=== PATIENT | male | born 1975 | race Caucasian/White ===

== ENCOUNTER 2023-07-30 14:09 | Inpatient (IN) | payer SELFPAY ==
[2023-07-30] MEDS ORDERED: Morphine 4 MG/ML VIAL ONE ×2 (14:17→14:47)
[2023-07-30] MEDS ORDERED: Ondansetron PF 4 MG/2 ML Vial ONE ×2 (14:17→20:43)
[2023-07-30] MEDS ORDERED: CEFAZOLIN 2 GM VIAL ONE (14:23)
[2023-07-30] MEDS ORDERED: Sodium Chloride 0.9% 100 ML ONE (14:23)
[2023-07-30] MEDS ORDERED: Boostrix 0.5 ML (Tdap) VIAL (>/=7 yrs of age) ONE ×2 (14:23→16:05)
[2023-07-30 14:28] LABS: #Basophils 0.1 thou/uL (0.0-0.2); #Eosinphils 0.2 thou/uL (0.0-0.7); #Monocytes 0.9 thou/uL (0.11-0.59); #Neutrophils 9.6 thou/uL (1.40-6.50); %Basophils 0.6 % (0.0-1.0); %Eosinophils 1.4 % (0.0-10.0); %Lymphocytes 14.4 % (21.0-51.0); %Monocytes 6.8 % (0.0-10.0); %Neutrophils 76.5 % (42.0-75.0); Hematocrit 45.2 % (42.0-52.0); Hemoglobin 15.2 g/dL (14.0-18.0); Mean Corpuscular HGB CONC 33.6 g/dL (32.0-36.0); Mean Corpuscular Hemoglobin 32.9 pg (27.0-31.0); Mean Corpuscular Volume 97.8 fl (78.0-98.0); Mean Platelet Volume 9.5 fL (7.4-10.4); Platelet Count 221 10x3/uL (130-400); RBC Distribution Width 12.6 % (11.5-14.5); Red Blood Cell (RBC) Count 4.62 mill/uL (4.70-6.10); White Blood Cell (WBC) Count 12.5 10x3/uL (4.8-10.8)
[2023-07-30 14:39] LABS: INR-International Normal Ratio 0.9; Prothrombin Time 12.7 sec (12.0-14.7)
[2023-07-30] MEDS ORDERED: SODIUM CHLORIDE IVPB SCH (14:45)
[2023-07-30] MEDS ORDERED: ADMIXTURE FEE IVPB SCH (14:45)
[2023-07-30] MEDS ORDERED: GENTAMICIN SULFATE IVPB SCH (14:45)
[2023-07-30 14:50] LABS: Anion Gap 15 mmol/L (10-20); BUN (Urea Nitrogen) 9 mg/dL (8.9-20.6); Calc. Creatinine Clearance 0 mL/min (70-130); Carbon Dioxide 21 mmol/L (22-29); Chloride 107 mmol/L (98-107); Potassium 4.4 mmol/L (3.5-5.1); Sodium 139 mmol/L (136-145)
[2023-07-30 14:51] LABS: ALT (SGPT) 23 U/L (8-55); AST (SGOT) 23 U/L (5-34); Albumin 4.2 g/dL (3.5-5.0); Alcohol Less than 10.0 mg/dL (Less than 10); Alkaline Phosphatase 72 U/L (40-110); Bilirubin, Total 0.4 mg/dL (0.2-1.2); Calcium 9.1 mg/dL (7.8-10.44); Estimated GFR 83; Globulin 2.6 g/dL (2.4-3.5); Glucose 124 mg/dL (70-105); Protein, Total 6.8 g/dL (6.0-8.3)
[2023-07-30] MEDS ORDERED: Ondansetron PF 4 MG/2 ML Vial IVP PRN (15:50)
[2023-07-30] MEDS ORDERED: Ipratropium/Albuterol 3 ML NEB NEB PRN (15:50)
[2023-07-30] MEDS ORDERED: Cyclobenzaprine 10 MG TAB PO PRN (15:53)
[2023-07-30] MEDS ORDERED: traMADol HCl 50 MG TAB PO PRN (15:53)
[2023-07-30] MEDS: Sodium Chloride 0.9% 1,000 ML IV SCH (16:00)
[2023-07-30] MEDS ORDERED: Morphine 2 MG/ML VIAL ONE (16:30)
[2023-07-30] MEDS ORDERED: traMADol HCl 50 MG TAB ONE (16:31)
[2023-07-30 16:41] LABS: Prothrombin Time 13.2 sec (12.0-14.7)
[2023-07-30 16:42] LABS: PTT 21.4 sec (22.9-36.1)
[2023-07-30] MEDS: Acetaminophen 500 MG TAB PO SCH (19:01)
[2023-07-30] MEDS: traMADol HCl 50 MG TAB PO SCH (19:02)
[2023-07-30] MEDS: Morphine 2 MG/ML VIAL SLOW IVP PRN (19:59)
[2023-07-30 20:03] VITALS: BMI 25.8
[2023-07-30] MEDS ORDERED: Midazolam HCl 2 mg/2 ml Vial ONE (20:28)
[2023-07-30] MEDS ORDERED: Fentanyl 250 MCG/5 ML VIAL ONE (20:28)
[2023-07-30] MEDS ORDERED: Dexamethasone 20 MG/5 ML VIAL ONE (20:43)
[2023-07-30] MEDS ORDERED: PROPOFOL 200 MG/20 ML VIAL ONE (20:43)
[2023-07-30] MEDS ORDERED: Rocuronium Bromide 10 MG/ML (10ML VIAL) ONE (20:43)
[2023-07-30] MEDS ORDERED: Succinylcholine 200 MG/10 ml SYRINGE FS ONE (20:43)
[2023-07-30] MEDS ORDERED: Glycopyrrolate 0.2 MG/ML 5 ML SYRINGE ONE (20:43)
[2023-07-30] MEDS ORDERED: NEOSTIGMINE 3 MG/3 ML SYR 3 MG/3 ML SYRINGE ONE (20:43)
[2023-07-30] MEDS ORDERED: Ketorolac Tromethamine 30 MG/ML VIAL ONE (20:43)
[2023-07-30 20:46] LABS: Amphetamine Not Detected (NotDetected); Barbiturates Screen Not Detected (NotDetected); Benzodiazepine Screen Not Detected (NotDetected); Cocaine Metabolite Screen Not Detected (NotDetected); Methadone Not Detected (NotDetected); Methamphetamine Not Detected (NotDetected); Opiate Screen Detected (NotDetected); Oxycodone Screen Not Detected (NotDetected); Phencyclidine (PCP) Not Detected (NotDetected); THC/Cannabinoid Screen Detected (NotDetected); Tricyclic Screen Not Detected (NotDetected)
[2023-07-30] MEDS: Gabapentin 300 MG CAP PO SCH (21:00)
[2023-07-30] MEDS: Famotidine 20 MG TAB PO SCH (21:00)
[2023-07-30] MEDS ORDERED: CEFAZOLIN 2 GM in Sodium Chloride 0.9% 100 ML IVPB SCH (22:00)
[2023-07-31] MEDS: Oxazepam 10 MG CAP PO SCH ×4 (01:45→21:49)
[2023-07-31] MEDS: traMADol HCl 50 MG TAB PO SCH ×4 (01:45→17:57)
[2023-07-31] MEDS: Sodium Chloride 0.9% 1,000 ML IV SCH ×3 (05:07→14:27)
[2023-07-31] MEDS: CEFAZOLIN 2 GM in Sodium Chloride 0.9% 100 ML IVPB SCH ×2 (05:07→14:07)
[2023-07-31] MEDS: Acetaminophen 500 MG TAB PO SCH ×4 (05:08→17:56)
[2023-07-31 05:28] LABS: #Monocytes 0.5 thou/uL (0.11-0.59); #Neutrophils 9.6 thou/uL (1.40-6.50); %Basophils 0.2 % (0.0-1.0); %Lymphocytes 5.3 % (21.0-51.0); %Monocytes 4.3 % (0.0-10.0); %Neutrophils 89.8 % (42.0-75.0); Hemoglobin 12.7 g/dL (14.0-18.0); Mean Corpuscular HGB CONC 33.4 g/dL (32.0-36.0); Mean Corpuscular Hemoglobin 33.2 pg (27.0-31.0); Mean Corpuscular Volume 99.5 fl (78.0-98.0); Mean Platelet Volume 10.1 fL (7.4-10.4); Platelet Count 180 10x3/uL (130-400); Red Blood Cell (RBC) Count 3.82 mill/uL (4.70-6.10); White Blood Cell (WBC) Count 10.7 10x3/uL (4.8-10.8)
[2023-07-31 05:43] LABS: INR-International Normal Ratio 0.9; PTT 24.4 sec (22.9-36.1); Prothrombin Time 12.8 sec (12.0-14.7)
[2023-07-31 05:53] LABS: Anion Gap 15 mmol/L (10-20); BUN (Urea Nitrogen) 10 mg/dL (8.9-20.6); Calc. Creatinine Clearance 95 mL/min (70-130); Carbon Dioxide 18 mmol/L (22-29); Chloride 108 mmol/L (98-107); Estimated GFR 83; Glucose 155 mg/dL (70-105); Potassium 4.3 mmol/L (3.5-5.1); Sodium 137 mmol/L (136-145)
[2023-07-31] MEDS: Thiamine 100 MG TAB PO SCH (08:34)
[2023-07-31] MEDS: Famotidine 20 MG TAB PO SCH ×2 (08:34→21:48)
[2023-07-31] MEDS: Folic Acid 1 MG TAB PO SCH (08:34)
[2023-07-31] MEDS: Gabapentin 300 MG CAP PO SCH ×3 (08:35→21:49)
[2023-07-31] MEDS: Morphine 2 MG/ML VIAL SLOW IVP PRN (09:40)
[2023-07-31] MEDS ORDERED: Ketorolac Tromethamine 30 MG/ML VIAL IVP SCH (10:30)
[2023-07-31] MEDS: Ketorolac Tromethamine 30 MG/ML VIAL IVP SCH ×2 (12:27→17:58)
[2023-07-31] MEDS: Cyclobenzaprine 10 MG TAB PO PRN ×2 (14:25→21:49)
[2023-07-31] MEDS: Senokot S 8.6-50 MG TAB PO SCH (21:53)
[2023-08-01] MEDS: traMADol HCl 50 MG TAB PO SCH ×5 (00:24→23:50)
[2023-08-01] MEDS: Ketorolac Tromethamine 30 MG/ML VIAL IVP SCH ×2 (00:25→06:06)
[2023-08-01] MEDS: Morphine 2 MG/ML VIAL SLOW IVP PRN (00:31)
[2023-08-01] MEDS: Acetaminophen 500 MG TAB PO SCH ×3 (00:37→12:21)
[2023-08-01 05:22] LABS: #Eosinphils 0.1 thou/uL (0.0-0.7); #Monocytes 0.6 thou/uL (0.11-0.59); #Neutrophils 4.8 thou/uL (1.40-6.50); %Basophils 0.3 % (0.0-1.0); %Eosinophils 1.1 % (0.0-10.0); %Lymphocytes 21.7 % (21.0-51.0); %Monocytes 8.9 % (0.0-10.0); %Neutrophils 67.7 % (42.0-75.0); Hematocrit 31.9 % (42.0-52.0); Hemoglobin 10.7 g/dL (14.0-18.0); Mean Corpuscular HGB CONC 33.5 g/dL (32.0-36.0); Mean Corpuscular Hemoglobin 33.4 pg (27.0-31.0); Mean Corpuscular Volume 99.7 fl (78.0-98.0); Mean Platelet Volume 9.9 fL (7.4-10.4); Platelet Count 142 10x3/uL (130-400); White Blood Cell (WBC) Count 7.1 10x3/uL (4.8-10.8)
[2023-08-01 05:44] LABS: Anion Gap 9 mmol/L (10-20); BUN (Urea Nitrogen) 10 mg/dL (8.9-20.6); Calc. Creatinine Clearance 123 mL/min (70-130); Carbon Dioxide 24 mmol/L (22-29); Chloride 108 mmol/L (98-107); Estimated GFR 107; Glucose 103 mg/dL (70-105); Potassium 3.4 mmol/L (3.5-5.1); Sodium 138 mmol/L (136-145)
[2023-08-01] MEDS: Oxazepam 10 MG CAP PO SCH ×3 (06:06→23:50)
[2023-08-01] MEDS ORDERED: Potassium Chloride 20 MEQ TAB PO SCH ×2 (08:30→09:30)
[2023-08-01] MEDS: Famotidine 20 MG TAB PO SCH ×2 (09:00→20:21)
[2023-08-01] MEDS: Polyethylene Glycol 3350 17 GM Packet PO SCH (09:00)
[2023-08-01] MEDS: Gabapentin 300 MG CAP PO SCH ×3 (09:00→20:21)
[2023-08-01] MEDS: Folic Acid 1 MG TAB PO SCH (09:00)
[2023-08-01] MEDS: Thiamine 100 MG TAB PO SCH (09:00)
[2023-08-01] MEDS: Senokot S 8.6-50 MG TAB PO SCH ×2 (09:01→20:21)
[2023-08-01] MEDS: Cyclobenzaprine 10 MG TAB PO PRN ×2 (09:10→20:21)
[2023-08-01] MEDS: Ibuprofen 200 MG TAB PO PRN ×2 (13:11→20:21)
[2023-08-01] MEDS: Acetaminophen/Codeine 30-300mg Tablet PO SCH ×2 (16:24→23:52)
[2023-08-02] MEDS: Oxazepam 10 MG CAP PO SCH ×2 (05:34→14:12)
[2023-08-02] MEDS: Acetaminophen 325 MG TAB PO SCH ×3 (05:35→17:25)
[2023-08-02] MEDS: Acetaminophen/Codeine 30-300mg Tablet PO SCH (05:35)
[2023-08-02] MEDS: traMADol HCl 50 MG TAB PO SCH ×3 (05:36→17:34)
[2023-08-02] MEDS: Famotidine 20 MG TAB PO SCH (09:18)
[2023-08-02] MEDS: Senokot S 8.6-50 MG TAB PO SCH (09:19)
[2023-08-02] MEDS ORDERED: Acetaminophen/Codeine 30-300mg Tablet PO PRN ×2 (09:19→09:20)
[2023-08-02] MEDS: Gabapentin 300 MG CAP PO SCH ×2 (09:19→14:12)
[2023-08-02] MEDS: Folic Acid 1 MG TAB PO SCH (09:19)
[2023-08-02] MEDS: Thiamine 100 MG TAB PO SCH (09:19)
[2023-08-02] MEDS: Polyethylene Glycol 3350 17 GM Packet PO SCH (09:19)
[2023-08-02] MEDS ORDERED: Morphine 2 MG/ML VIAL SLOW IVP PRN (09:21)
[2023-08-02] MEDS: tiZANidine HCl 4 MG TAB PO SCH ×2 (12:00→17:33)
[2023-08-02] MEDS: Ketorolac Tromethamine 30 MG/ML VIAL IVP SCH ×2 (12:01→17:26)
[2023-08-02 16:42] VITALS: TEMP 97.8
[2023-08-02 17:35] VITALS: BP 112/68
[2023-08-02] MEDS ORDERED: FLU VACC QS2023-24(6MOS UP)/PF 60 MCG/0.5 ML SYRINGE IM ONE (23:45)
== END 2023-08-02 18:54 | disposition home or self-care (01) | DRG 494 ==
LOC: ERS 14:09 → SURG B 16:36
PROVIDERS: ADMIT Student in an Organized Health Care Education/Training Program; ATTEND Student in an Organized Health Care Education/Training Program
PROC: 0QSG35Z Reposition Right Tibia with External Fixation Device, Percutaneous Approach (ICD-10-PCS; principal; 2023-07-30)
PROC: 0QDG0ZZ Extraction of Right Tibia, Open Approach (ICD-10-PCS; 2023-07-30)
PROC: 0QSMXZZ Reposition Left Tarsal, External Approach (ICD-10-PCS; 2023-07-30)
PROC: 3E0234Z Introduction of Serum, Toxoid and Vaccine into Muscle, Percutaneous Approach (ICD-10-PCS; 2023-07-30)
DX: S82.871B Displaced pilon fracture of right tibia, initial encounter for open fracture type I or II (principal); S92.002A Unspecified fracture of left calcaneus, initial encounter for closed fracture; S82.401A Unspecified fracture of shaft of right fibula, initial encounter for closed fracture; W13.2XXA Fall from, out of or through roof, initial encounter; F17.210 Nicotine dependence, cigarettes, uncomplicated; Z79.01 Long term (current) use of anticoagulants; Z86.718 Personal history of other venous thrombosis and embolism; Z98.890 Other specified postprocedural states; Z23 Encounter for immunization
CPT/HCPCS: 36415; 71045; 72131; 72170; 80048; 80053; 80306; 80307; 85025; 85610; 85730; 86850; 86900; 86901; 90471; 90715; 93005; 96365; 96367; 96375; 96376; C1713; C1776; G0390; J1100; J1580; J1650; J1885; J2250; J2270; J2272; J2405; J2704; J3010; J3490; J7050

== ENCOUNTER 2023-08-05 10:30 | Inpatient (IN) | payer SELFPAY ==
[2023-08-05] MEDS ORDERED: Sodium Chloride 0.9% 100 ML ONE (11:04)
[2023-08-05] MEDS ORDERED: Cefepime 2 GM VIAL ONE (11:04)
[2023-08-05] MEDS ORDERED: Vancomycin 1 GM/200 ML (FROZEN) BAG ONE (11:04)
[2023-08-05 11:29] LABS: Hemoglobin 12.8 g/dL (14.0-18.0); Red Blood Cell (RBC) Count 3.95 mill/uL (4.70-6.10); White Blood Cell (WBC) Count 5.6 10x3/uL (4.8-10.8)
[2023-08-05 11:30] LABS: #Eosinphils 0.2 thou/uL (0.0-0.7); #Monocytes 0.6 thou/uL (0.11-0.59); #Neutrophils 3.9 thou/uL (1.40-6.50); %Basophils 0.4 % (0.0-1.0); %Eosinophils 3.2 % (0.0-10.0); %Lymphocytes 14.8 % (21.0-51.0); %Monocytes 11.4 % (0.0-10.0); %Neutrophils 69.8 % (42.0-75.0); Hematocrit 38.7 % (42.0-52.0); Mean Corpuscular HGB CONC 33.1 g/dL (32.0-36.0); Mean Corpuscular Hemoglobin 32.4 pg (27.0-31.0); Mean Platelet Volume 9.9 fL (7.4-10.4); Platelet Count 232 10x3/uL (130-400); RBC Distribution Width 13.2 % (11.5-14.5)
[2023-08-05 11:58] LABS: ALT (SGPT) 22 U/L (8-55); AST (SGOT) 26 U/L (5-34); Albumin 3.4 g/dL (3.5-5.0); Alkaline Phosphatase 97 U/L (40-110); Anion Gap 15 mmol/L (10-20); BUN (Urea Nitrogen) 10 mg/dL (8.9-20.6); Bilirubin, Total 0.6 mg/dL (0.2-1.2); Calc. Creatinine Clearance 0 mL/min (70-130); Calcium 9.5 mg/dL (7.8-10.44); Carbon Dioxide 22 mmol/L (22-29); Chloride 106 mmol/L (98-107); Estimated GFR 108; Globulin 3.8 g/dL (2.4-3.5); Glucose 97 mg/dL (70-105); Potassium 4.4 mmol/L (3.5-5.1); Protein, Total 7.2 g/dL (6.0-8.3); Sodium 139 mmol/L (136-145)
[2023-08-05] MEDS ORDERED: Vancomycin (BATCH) 2 GM in Premix 1 BAG IVPB SCH (12:15)
[2023-08-05] MEDS ORDERED: Ipratropium/Albuterol 3 ML NEB NEB PRN (12:28)
[2023-08-05] MEDS ORDERED: Ondansetron PF 4 MG/2 ML Vial IVP PRN (12:28)
[2023-08-05] MEDS ORDERED: hydrALAZINE 20 MG/ML VIAL SLOW IVP PRN (12:28)
[2023-08-05] MEDS ORDERED: Sodium Chloride 0.9% 1,000 ML IV SCH (12:30)
[2023-08-05] MEDS ORDERED: traMADol HCl 50 MG TAB PO PRN (12:30)
[2023-08-05 14:21] VITALS: BMI 26.5
[2023-08-05] MEDS: Oxazepam 10 MG CAP PO SCH ×2 (14:25→22:58)
[2023-08-05] MEDS: Gabapentin 300 MG CAP PO SCH ×2 (14:33→20:08)
[2023-08-05] MEDS: Acetaminophen/Codeine 30-300mg Tablet PO PRN ×2 (14:33→20:07)
[2023-08-05] MEDS ORDERED: Piperacillin/Tazobactam 3.375 GM in Sodium Chloride 0.9% 100 ML IVPB SCH ×2 (15:30→18:00)
[2023-08-05 16:28] LABS: Bacteria/HPF None Seen HPF (None Seen); Bilirubin Negative (Negative); Blood, Urine Negative (Negative); CAUTI Indications for Culture Fever or rigors; Clarity Clear (Clear); Glucose, Urine (Dipstick) Normal (Negative); Ketone, Urine Negative (Negative); Leukocyte Negative Leu/uL (Negative); Nitrite Negative (Negative); Protein, Urine (Dipstick) 10 mg/dL (Neg-Trace); RBC/HPF 0-3 HPF (0-3); Specific Gravity, Urine 1.018 (1.002-1.036); Squamous Epithelial None Seen HPF (0-3); Urobilinogen Normal mg/dL (Less than 2); WBC/HPF 0-3 HPF (0-3)
[2023-08-05 16:33] LABS: Urine Culture Reflex No No
[2023-08-05] MEDS: Acetaminophen 325 MG TAB PO SCH ×2 (17:08→23:04)
[2023-08-05] MEDS: traMADol HCl 50 MG TAB PO SCH ×2 (17:08→23:04)
[2023-08-05] MEDS: Famotidine 20 MG TAB PO SCH (20:06)
[2023-08-05] MEDS: Senokot S 8.6-50 MG TAB PO SCH (20:08)
[2023-08-05] MEDS: Piperacillin/Tazobactam 3.375 GM in Sodium Chloride 0.9% 100 ML IVPB SCH (22:59)
[2023-08-06] MEDS: Cyclobenzaprine 10 MG TAB PO PRN ×2 (00:06→21:31)
[2023-08-06] MEDS: Acetaminophen 325 MG TAB PO SCH ×3 (05:46→18:01)
[2023-08-06] MEDS: traMADol HCl 50 MG TAB PO SCH ×4 (05:46→23:49)
[2023-08-06] MEDS: Piperacillin/Tazobactam 3.375 GM in Sodium Chloride 0.9% 100 ML IVPB SCH ×3 (05:48→21:31)
[2023-08-06] MEDS: Oxazepam 10 MG CAP PO SCH ×3 (05:48→21:36)
[2023-08-06 06:11] LABS: #Eosinphils 0.2 thou/uL (0.0-0.7); #Monocytes 0.8 thou/uL (0.11-0.59); #Neutrophils 3.1 thou/uL (1.40-6.50); %Basophils 0.4 % (0.0-1.0); %Eosinophils 3.7 % (0.0-10.0); %Lymphocytes 20.6 % (21.0-51.0); %Monocytes 14.6 % (0.0-10.0); %Neutrophils 60.3 % (42.0-75.0); Hemoglobin 11.5 g/dL (14.0-18.0); Mean Corpuscular HGB CONC 32.9 g/dL (32.0-36.0); Mean Corpuscular Hemoglobin 32.3 pg (27.0-31.0); Mean Corpuscular Volume 98.3 fl (78.0-98.0); Mean Platelet Volume 9.8 fL (7.4-10.4); Platelet Count 229 10x3/uL (130-400); RBC Distribution Width 13.3 % (11.5-14.5); Red Blood Cell (RBC) Count 3.56 mill/uL (4.70-6.10); White Blood Cell (WBC) Count 5.1 10x3/uL (4.8-10.8)
[2023-08-06 06:31] LABS: Anion Gap 14 mmol/L (10-20); BUN (Urea Nitrogen) 10 mg/dL (8.9-20.6); Calc. Creatinine Clearance 132 mL/min (70-130); Calcium 8.6 mg/dL (7.8-10.44); Carbon Dioxide 20 mmol/L (22-29); Chloride 108 mmol/L (98-107); Estimated GFR 109; Glucose 91 mg/dL (70-105); Potassium 4.2 mmol/L (3.5-5.1); Sodium 138 mmol/L (136-145)
[2023-08-06 06:51] LABS: PTT 37.1 sec (22.9-36.1)
[2023-08-06] MEDS: Senokot S 8.6-50 MG TAB PO SCH ×2 (09:09→20:01)
[2023-08-06] MEDS: Folic Acid 1 MG TAB PO SCH (09:09)
[2023-08-06] MEDS: Saccharomyces boulardii 250 MG CAP PO SCH (09:09)
[2023-08-06] MEDS: Gabapentin 300 MG CAP PO SCH ×3 (09:10→19:59)
[2023-08-06] MEDS: Polyethylene Glycol 3350 17 GM Packet PO SCH (09:10)
[2023-08-06] MEDS: Famotidine 20 MG TAB PO SCH ×2 (09:10→19:59)
[2023-08-06] MEDS: Thiamine 100 MG TAB PO SCH (09:12)
[2023-08-06] MEDS: Acetaminophen/Codeine 30-300mg Tablet PO PRN ×2 (10:31→20:01)
[2023-08-07] MEDS: Acetaminophen 325 MG TAB PO SCH ×5 (00:02→23:07)
[2023-08-07] MEDS: traMADol HCl 50 MG TAB PO SCH ×4 (05:18→23:08)
[2023-08-07] MEDS: Piperacillin/Tazobactam 3.375 GM in Sodium Chloride 0.9% 100 ML IVPB SCH ×3 (05:19→23:06)
[2023-08-07] MEDS: Oxazepam 10 MG CAP PO SCH ×3 (05:26→21:16)
[2023-08-07] MEDS ORDERED: Vancomycin (BATCH) 2 GM in Premix 1 BAG IVPB SCH (09:00)
[2023-08-07] MEDS ORDERED: VANCOMYCIN IVPB PRN (09:01)
[2023-08-07] MEDS: Saccharomyces boulardii 250 MG CAP PO SCH (09:33)
[2023-08-07] MEDS: Thiamine 100 MG TAB PO SCH (09:33)
[2023-08-07] MEDS: Famotidine 20 MG TAB PO SCH ×2 (09:33→21:13)
[2023-08-07] MEDS: Folic Acid 1 MG TAB PO SCH (09:33)
[2023-08-07] MEDS: Senokot S 8.6-50 MG TAB PO SCH ×2 (09:34→21:14)
[2023-08-07] MEDS: Polyethylene Glycol 3350 17 GM Packet PO SCH (09:35)
[2023-08-07] MEDS: Gabapentin 300 MG CAP PO SCH ×3 (09:36→21:14)
[2023-08-07] MEDS: Vancomycin (BATCH) 1.25 GM in Premix 1 BAG IVPB SCH ×2 (11:08→21:24)
[2023-08-07] MEDS: Acetaminophen/Codeine 30-300mg Tablet PO PRN (21:19)
[2023-08-07] MEDS: Cyclobenzaprine 10 MG TAB PO PRN (23:09)
[2023-08-08] MEDS: Acetaminophen 325 MG TAB PO SCH ×4 (05:42→23:55)
[2023-08-08] MEDS: traMADol HCl 50 MG TAB PO SCH ×4 (05:44→23:54)
[2023-08-08] MEDS: Oxazepam 10 MG CAP PO SCH ×3 (05:44→21:52)
[2023-08-08 06:48] LABS: Hematocrit 33.8 % (42.0-52.0); Mean Corpuscular HGB CONC 32.5 g/dL (32.0-36.0); Mean Corpuscular Hemoglobin 32.1 pg (27.0-31.0); Mean Corpuscular Volume 98.5 fl (78.0-98.0); Mean Platelet Volume 9.4 fL (7.4-10.4); Platelet Count 288 10x3/uL (130-400); RBC Distribution Width 13.3 % (11.5-14.5); Red Blood Cell (RBC) Count 3.43 mill/uL (4.70-6.10); White Blood Cell (WBC) Count 6.4 10x3/uL (4.8-10.8)
[2023-08-08 06:51] LABS: Delete Auto Diff?? YES; Manual Diff?? YES
[2023-08-08] MEDS: Piperacillin/Tazobactam 3.375 GM in Sodium Chloride 0.9% 100 ML IVPB SCH ×3 (07:06→21:51)
[2023-08-08] MEDS: Famotidine 20 MG TAB PO SCH ×2 (08:43→21:52)
[2023-08-08] MEDS: Folic Acid 1 MG TAB PO SCH (08:43)
[2023-08-08] MEDS: Saccharomyces boulardii 250 MG CAP PO SCH (08:43)
[2023-08-08] MEDS: Thiamine 100 MG TAB PO SCH (08:43)
[2023-08-08] MEDS: Gabapentin 300 MG CAP PO SCH ×3 (08:44→21:52)
[2023-08-08] MEDS: Polyethylene Glycol 3350 17 GM Packet PO SCH (08:45)
[2023-08-08] MEDS: Senokot S 8.6-50 MG TAB PO SCH ×2 (08:45→21:51)
[2023-08-08] MEDS: Acetaminophen/Codeine 30-300mg Tablet PO PRN ×2 (08:54→16:39)
[2023-08-08 09:25] LABS: Band 3 % (5-11); Eosinophils 4 % (0-10); Lymphocytes 20 % (21-51); Monocytes 9 % (0-10); Neutrophil 64 % (42-75)
[2023-08-08 09:26] LABS: Platelet Adequacy Comment Appears Adequate; RBC Morph Comment Within Normal Limits
[2023-08-08] MEDS: Vancomycin (BATCH) 1.25 GM in Premix 1 BAG IVPB SCH ×2 (10:10→23:29)
[2023-08-08] MEDS ORDERED: Sodium Chloride 0.9% 100 ML ONE (13:55)
[2023-08-08] MEDS ORDERED: Piperacillin/Tazobactam 3.375 GM VIAL ONE (13:55)
[2023-08-08] MEDS ORDERED: fentaNYL 50 mcg/mL 1 mL Vial ONE ×2 (14:12→15:01)
[2023-08-08] MEDS ORDERED: Ondansetron PF 4 MG/2 ML Vial ONE (14:14)
[2023-08-08] MEDS ORDERED: Lidocaine 1% PF 5 ML VIAL ONE (14:14)
[2023-08-08] MEDS ORDERED: PROPOFOL 200 MG/20 ML VIAL ONE (14:14)
[2023-08-08] MEDS ORDERED: ePHEDrine Sulfate 50 MG/10 ML VIAL ONE (14:14)
[2023-08-08] MEDS ORDERED: FLU VACC QS2023-24(6MOS UP)/PF 60 MCG/0.5 ML SYRINGE IM ONE (14:30)
[2023-08-08] MEDS ORDERED: Sevoflurane 250 ML INH ANEST BOTTLE ONE (14:41)
[2023-08-08] MEDS ORDERED: Meperidine HCl/PF 25 MG/ML VIAL SLOW IVP PRN (15:20)
[2023-08-08] MEDS ORDERED: HYDROmorphone 2 MG/ML VIAL SLOW IVP PRN (15:20)
[2023-08-08] MEDS ORDERED: Morphine Sulfate 2 MG/ML SYRINGE SLOW IVP PRN (15:20)
[2023-08-08] MEDS ORDERED: Ondansetron HCl/PF 4 MG/2 ML Vial IVP PRN (15:20)
[2023-08-08] MEDS ORDERED: Promethazine HCl 25 MG/ML VIAL IM PRN (15:20)
[2023-08-08] MEDS: Morphine 2 MG/ML VIAL SLOW IVP PRN ×3 (16:36→21:51)
[2023-08-08] MEDS: Cyclobenzaprine 10 MG TAB PO PRN (21:51)
[2023-08-08 22:25] LABS: Vancomycin, Trough 23.3 ug/mL
[2023-08-09] MEDS: Morphine 2 MG/ML VIAL SLOW IVP PRN ×7 (01:56→20:29)
[2023-08-09] MEDS: Vancomycin 1 GM in Premix 1 BAG IVPB SCH ×2 (05:52→18:25)
[2023-08-09] MEDS: Acetaminophen 325 MG TAB PO SCH ×4 (05:53→23:17)
[2023-08-09] MEDS: Piperacillin/Tazobactam 3.375 GM in Sodium Chloride 0.9% 100 ML IVPB SCH ×3 (05:53→20:32)
[2023-08-09] MEDS: Oxazepam 10 MG CAP PO SCH ×3 (05:54→20:32)
[2023-08-09] MEDS: traMADol HCl 50 MG TAB PO SCH ×4 (05:54→23:17)
[2023-08-09 06:10] LABS: #Eosinphils 0.2 thou/uL (0.0-0.7); #Neutrophils 6.7 thou/uL (1.40-6.50); %Basophils 0.3 % (0.0-1.0); %Eosinophils 2.2 % (0.0-10.0); %Lymphocytes 14.3 % (21.0-51.0); %Monocytes 10.6 % (0.0-10.0); %Neutrophils 72.2 % (42.0-75.0); Hematocrit 31.9 % (42.0-52.0); Hemoglobin 10.5 g/dL (14.0-18.0); Mean Corpuscular HGB CONC 32.9 g/dL (32.0-36.0); Mean Corpuscular Hemoglobin 32.3 pg (27.0-31.0); Mean Corpuscular Volume 98.2 fl (78.0-98.0); Mean Platelet Volume 9.3 fL (7.4-10.4); Platelet Count 323 10x3/uL (130-400); RBC Distribution Width 13.2 % (11.5-14.5); Red Blood Cell (RBC) Count 3.25 mill/uL (4.70-6.10); White Blood Cell (WBC) Count 9.3 10x3/uL (4.8-10.8)
[2023-08-09] MEDS: Senokot S 8.6-50 MG TAB PO SCH ×2 (08:44→20:32)
[2023-08-09] MEDS: Gabapentin 300 MG CAP PO SCH ×3 (08:44→20:32)
[2023-08-09] MEDS: Thiamine 100 MG TAB PO SCH (08:45)
[2023-08-09] MEDS: Saccharomyces boulardii 250 MG CAP PO SCH (08:45)
[2023-08-09] MEDS: Famotidine 20 MG TAB PO SCH ×2 (08:45→20:31)
[2023-08-09] MEDS: Polyethylene Glycol 3350 17 GM Packet PO SCH (08:45)
[2023-08-09] MEDS: Folic Acid 1 MG TAB PO SCH (08:45)
[2023-08-10] MEDS: Acetaminophen 325 MG TAB PO SCH ×4 (05:42→22:30)
[2023-08-10] MEDS: Vancomycin 1 GM in Premix 1 BAG IVPB SCH ×2 (05:43→16:18)
[2023-08-10] MEDS: traMADol HCl 50 MG TAB PO SCH ×4 (05:43→23:34)
[2023-08-10] MEDS: Piperacillin/Tazobactam 3.375 GM in Sodium Chloride 0.9% 100 ML IVPB SCH ×3 (05:43→21:19)
[2023-08-10] MEDS: Oxazepam 10 MG CAP PO SCH ×3 (05:43→21:07)
[2023-08-10] MEDS: Folic Acid 1 MG TAB PO SCH (08:29)
[2023-08-10] MEDS: Senokot S 8.6-50 MG TAB PO SCH ×2 (08:29→21:18)
[2023-08-10] MEDS: Polyethylene Glycol 3350 17 GM Packet PO SCH (08:29)
[2023-08-10] MEDS: Acetaminophen/Codeine 30-300mg Tablet PO PRN ×3 (08:29→21:17)
[2023-08-10] MEDS: Thiamine 100 MG TAB PO SCH (08:30)
[2023-08-10] MEDS: Gabapentin 300 MG CAP PO SCH ×3 (08:30→21:18)
[2023-08-10] MEDS: Saccharomyces boulardii 250 MG CAP PO SCH (08:30)
[2023-08-10] MEDS: Famotidine 20 MG TAB PO SCH ×2 (08:30→21:19)
[2023-08-10] MEDS: Cyclobenzaprine 10 MG TAB PO PRN (23:33)
[2023-08-11] MEDS: traMADol HCl 50 MG TAB PO SCH ×4 (05:30→23:40)
[2023-08-11] MEDS: Acetaminophen 325 MG TAB PO SCH ×4 (05:31→23:39)
[2023-08-11 05:35] LABS: #Eosinphils 0.3 thou/uL (0.0-0.7); #Monocytes 0.8 thou/uL (0.11-0.59); #Neutrophils 4.3 thou/uL (1.40-6.50); %Basophils 0.6 % (0.0-1.0); %Eosinophils 4.6 % (0.0-10.0); %Lymphocytes 19.3 % (21.0-51.0); %Monocytes 11.6 % (0.0-10.0); %Neutrophils 63.3 % (42.0-75.0); Hematocrit 32.8 % (42.0-52.0); Hemoglobin 10.5 g/dL (14.0-18.0); Mean Corpuscular Hemoglobin 32.3 pg (27.0-31.0); Mean Corpuscular Volume 100.9 fl (78.0-98.0); Mean Platelet Volume 10.3 fL (7.4-10.4); RBC Distribution Width 13.2 % (11.5-14.5); Red Blood Cell (RBC) Count 3.25 mill/uL (4.70-6.10); White Blood Cell (WBC) Count 6.8 10x3/uL (4.8-10.8)
[2023-08-11] MEDS: Oxazepam 10 MG CAP PO SCH ×3 (05:41→21:29)
[2023-08-11] MEDS: Piperacillin/Tazobactam 3.375 GM in Sodium Chloride 0.9% 100 ML IVPB SCH ×2 (05:42→14:41)
[2023-08-11 05:43] LABS: Platelet Count 199 10x3/uL (130-400); Vancomycin, Trough 16.8 ug/mL
[2023-08-11] MEDS: Vancomycin 1 GM in Premix 1 BAG IVPB SCH ×2 (05:55→17:42)
[2023-08-11] MEDS: Folic Acid 1 MG TAB PO SCH (09:57)
[2023-08-11] MEDS: Gabapentin 300 MG CAP PO SCH ×3 (09:57→21:28)
[2023-08-11] MEDS: Saccharomyces boulardii 250 MG CAP PO SCH (09:58)
[2023-08-11] MEDS: Famotidine 20 MG TAB PO SCH ×2 (09:58→21:28)
[2023-08-11] MEDS: Polyethylene Glycol 3350 17 GM Packet PO SCH (09:58)
[2023-08-11] MEDS: Senokot S 8.6-50 MG TAB PO SCH ×2 (09:59→21:29)
[2023-08-11] MEDS: Thiamine 100 MG TAB PO SCH (09:59)
[2023-08-11] MEDS: Cefepime 2 GM in Sodium Chloride 0.9% 100 ML IVPB SCH (21:26)
[2023-08-12] MEDS: Oxazepam 10 MG CAP PO SCH ×3 (05:49→21:59)
[2023-08-12] MEDS: Acetaminophen 325 MG TAB PO SCH ×3 (05:49→17:57)
[2023-08-12] MEDS: traMADol HCl 50 MG TAB PO SCH ×3 (05:50→17:58)
[2023-08-12] MEDS: Vancomycin 1 GM in Premix 1 BAG IVPB SCH (05:51)
[2023-08-12] MEDS: Senokot S 8.6-50 MG TAB PO SCH ×2 (09:40→21:59)
[2023-08-12] MEDS: Thiamine 100 MG TAB PO SCH (09:40)
[2023-08-12] MEDS: Saccharomyces boulardii 250 MG CAP PO SCH (09:40)
[2023-08-12] MEDS: Famotidine 20 MG TAB PO SCH ×2 (09:40→21:56)
[2023-08-12] MEDS: Cefepime 2 GM in Sodium Chloride 0.9% 100 ML IVPB SCH ×2 (09:40→21:57)
[2023-08-12] MEDS: Folic Acid 1 MG TAB PO SCH (09:40)
[2023-08-12] MEDS: Gabapentin 300 MG CAP PO SCH ×3 (09:41→21:55)
[2023-08-12] MEDS: Polyethylene Glycol 3350 17 GM Packet PO SCH (09:42)
[2023-08-12] MEDS: Linezolid 600 MG TAB PO SCH (21:58)
[2023-08-13] MEDS: Cyclobenzaprine 10 MG TAB PO PRN (00:03)
[2023-08-13] MEDS: Acetaminophen 325 MG TAB PO SCH ×3 (00:03→11:40)
[2023-08-13] MEDS: traMADol HCl 50 MG TAB PO SCH ×3 (00:05→11:40)
[2023-08-13] MEDS: Oxazepam 10 MG CAP PO SCH (06:12)
[2023-08-13] MEDS: Saccharomyces boulardii 250 MG CAP PO SCH (09:06)
[2023-08-13] MEDS: Gabapentin 300 MG CAP PO SCH (09:06)
[2023-08-13] MEDS: Folic Acid 1 MG TAB PO SCH (09:06)
[2023-08-13] MEDS: Thiamine 100 MG TAB PO SCH (09:06)
[2023-08-13] MEDS: Cefepime 2 GM in Sodium Chloride 0.9% 100 ML IVPB SCH (09:06)
[2023-08-13] MEDS: Famotidine 20 MG TAB PO SCH (09:06)
[2023-08-13] MEDS: Polyethylene Glycol 3350 17 GM Packet PO SCH (09:07)
[2023-08-13] MEDS: Senokot S 8.6-50 MG TAB PO SCH (09:08)
[2023-08-13] MEDS: Linezolid 600 MG TAB PO SCH (10:02)
[2023-08-13 11:16] VITALS: BP 100/60; TEMP 99.1
== END 2023-08-13 13:15 | disposition home or self-care (01) | DRG 857 ==
LOC: ERS 10:30 → SJJU 12:31
PROVIDERS: ADMIT Specialist; ATTEND Specialist
PROC: 0JDN0ZZ Extraction of Right Lower Leg Subcutaneous Tissue and Fascia, Open Approach (ICD-10-PCS; principal; 2023-08-08)
PROC: 3E10X8Z Irrigation of Skin and Mucous Membranes using Irrigating Substance (ICD-10-PCS; 2023-08-08)
PROC: 3E033XZ Introduction of Vasopressor into Peripheral Vein, Percutaneous Approach (ICD-10-PCS; 2023-08-08)
DX: T81.49XA Infection following a procedure, other surgical site, initial encounter (principal); T81.31XA Disruption of external operation (surgical) wound, not elsewhere classified, initial encounter; W17.89XD Other fall from one level to another, subsequent encounter; S92.002D Unspecified fracture of left calcaneus, subsequent encounter for fracture with routine healing; F17.210 Nicotine dependence, cigarettes, uncomplicated; A48.8 Other specified bacterial diseases; F10.10 Alcohol abuse, uncomplicated; S82.871D Displaced pilon fracture of right tibia, subsequent encounter for closed fracture with routine healing; S82.401D Unspecified fracture of shaft of right fibula, subsequent encounter for closed fracture with routine healing; F12.90 Cannabis use, unspecified, uncomplicated; Z98.890 Other specified postprocedural states; Z79.899 Other long term (current) drug therapy; Z86.718 Personal history of other venous thrombosis and embolism
CPT/HCPCS: 36415; 71045; 80048; 80053; 80202; 81001; 82565; 85025; 85610; 85730; 87040; 87070; 87076; 87077; 87186; 87205; 96365; 97139; J0692; J1650; J2272; J2405; J2543; J2704; J3010; J3370; J3370-JW; J3490; J7050